=== PATIENT | male | born 2000 | race African-American/Black ===

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

== ENCOUNTER 2018-01-21 22:18 | Emergency (ER) | payer SELFPAY ==
[2018-01-21] MEDS ORDERED: KETOROLAC 60 MG/2 ML INJ. IM (23:30)
[2018-01-21] MEDS ORDERED: FAMOTIDINE 20 MG TABLET. PO (23:30)
[2018-01-21] MEDS ORDERED: ONDANSETRON ODT 4 MG TAB.RAPDIS. PO (23:30)
[2018-01-21] MEDS ORDERED: SUCRALFATE 1 GM TABLET. PO (23:30)
== END 2018-01-22 | disposition home or self-care (01) ==
LOC: ER 01-22
DX: R10.13 Epigastric pain (principal); R11.0 Nausea
CPT/HCPCS: 99281

== ENCOUNTER 2021-05-29 12:35 | Emergency (ER) | payer SELFPAY ==
[2018-01-21 23:55] VITALS: BP 133/66
[~2021-05-29 12:35] MED LIST changes: +AMOX500T PO; +DOCU-109 PO; +NAPR-699 PO; -NAPR250T2 PO; +POLY17PO29 PO
== END 2021-05-29 12:52 | disposition left against medical advice (07) ==
LOC: ER 12:35
DX: Z20.822 Contact with and (suspected) exposure to COVID-19 (principal); Z53.21 Procedure and treatment not carried out due to patient leaving prior to being seen by health care provider

== ENCOUNTER 2021-08-05 | Emergency (ER) | payer SELFPAY ==
[~2021-08-05] VITALS: Ht 180.3 cm; Wt 81.0 kg
--- NOTE | 2021-08-05 00:51 | PHYS DOC ---
Past Medical History Past Medical History: No Pertinent History Past Surgical History: Other Additional Past Surgical Histo: clavicle Smoking Status: Current Every Day Smoker Alcohol Use: None Drug Use: Marijuana General Adult EDM: Chief Complaint: DYSPNEA/RESPIRATORY DISTRESS HPI: HPI: Patient is a 20 year old male who presents with nasal congestion, generalized fatigue, subjective fevers since Sunday of this week. States that he has been around household member with similar symptoms. He is not vaccinated for Covid. No known Covid contacts. Denies shortness of breath. Does complain of chest tightness. No history of similar. Denies alcohol, drug use, smoking. No history of recent surgeries or immobilization, no hemoptysis, no cancer history, no lower extremity edema or discomfort. No estrogen-containing medications. Also complains of some upper abdominal discomfort. Described as a knot in his upper middle abdomen. Does not radiate. Has been present for more than a month. No associated nausea, vomiting. No diarrhea or constipation. No urinary symptoms. No history of abdominal surgeries. Review of Systems: Review of Systems: Constitutional: Reports subjective fever and chills Eyes: Denies change in visual acuity. [] HENT: Reports nasal congestion Respiratory: Reports chest tightness. Denies cough or shortness of breath. [] Cardiovascular: Denies chest pain or edema. [] GI: Denies abdominal pain, nausea, vomiting, bloody stools or diarrhea. [] : Denies dysuria. [] Musculoskeletal: Denies back pain or joint pain. [] Integument: Denies rash. [] Neurologic: Denies headache, focal weakness or sensory changes. [] Endocrine: Denies polyuria or polydipsia. [] Lymphatic: Denies swollen glands. [] Psychiatric: Denies depression or anxiety. [] Heart Score: C/O Chest Pain: N/A Risk Factors: Risk Factors: None Allergies: Allergies: Allergies Coded Allergies Type Severity Reaction Last Updated Verified No Known Drug Allergies 08/05/21 No Physical Exam: PE: Constitutional: Smells of marijuana, denies use. no acute distress, non-toxic appearance. [] HENT: Normocephalic, atraumatic.+ Nasal congestion Eyes: PERRLA, EOMI, conjunctiva normal, no discharge. [] Neck: Normal range of motion, no tenderness, supple, no stridor. [] Cardiovascular:Heart rate regular rhythm, no murmur [] Lungs & Thorax: Normal work of breathing. Bilateral breath sounds clear to auscultation [] Abdomen: Soft, nondistended, no tenderness with palpation. No masses Skin: Warm, dry, no erythema, no rash. [] Back: No tenderness, no CVA tenderness. [] Extremities: No tenderness, no cyanosis, no clubbing, ROM intact, no edema. [] Neurologic: Alert and oriented X 3, normal motor function, normal sensory function, no focal deficits noted. [] Psychologic: Affect normal, judgement normal, mood normal. [] Current Patient Data: Vital Signs: Vital Signs Date Time Temp Pulse Resp B/P (MAP) Pulse Ox O2 Delivery O2 Flow Rate FiO2 08/05/21 00:28 99.7 98 20 149/75 (99) 100 Room Air 99.7 EKG: EKG: Sinus rhythm. Rate 93. Normal axis. Normal intervals. QTc 413. No acute ischemic changes. [] Radiology/Procedures: Radiology/Procedures: [] Impression: [facility] [address] [place] [address] IMAGING REPORT Signed PATIENT: HORTENCIA GARCIA ACCOUNT: [id number] : 2000 LOCATION: ER AGE: 20 SEX: M EXAM STATUS: REG ER ORD. PHYSICIAN: KAYY CHRISTOPHER MD REASON: chest tightness PROCEDURE: CHEST AP ONLY XR CHEST 1V INDICATION: chest tightness COMPARISON STUDY: None. FINDINGS: Lungs: Normal lung volume. No pulmonary mass or consolidation. The tracheobronchial tree and hilar structures are normal. Pleura: No pleural effusion or pneumothorax. Heart and Mediastinum: The cardiomediastinal silhouette is normal. The great vessels of the thorax are normal. Bones and Soft Tissues: The bones and soft tissues are within normal limits. IMPRESSION: No acute cardiopulmonary process. Electronically signed by: Kristopher Aguila MD (08/05/2021 1:14 AM) [facility] DICTATED and SIGNED BY: KRISTOPHER AGUILA MD DATE: 08/05/21 [id number] Course & Med Decision Making: Course & Med Decision Making Pertinent Labs and Imaging studies reviewed. (See chart for details) Patient 20-year-old male without pertinent past medical history presents with nasal congestion, subjective fevers, and chest tightness for the past 4 days. Also complains of chronic "knot" in his stomach in his epigastric area. We will check for influenza and Covid. CXR to exclude pneumonia. EKG nonischemic, no risk factors for cardiac ischemia. Do not feel the troponin is indicated. Considered PE. Patient is PERC negative. No further work-up will be obtained in the ED. Lung sounds are clear. No evidence of asthma. For his complaint of chronic epigastric discomfort CMP and lipase were sent. He had no discernable tenderness, so imaging has been deferred. [id number] Labs and CXR reassuring. Covid and influenza rapid testing negative. Covid PCR pending. Will provide with contact information for local family medicine group to establish with PCP. Return precautions discussed. [id number] Manpreet Disclaimer: Manpreet Disclaimer: This electronic medical record was generated, in whole or in part, using a voice recognition dictation system. Departure Departure Impression: Primary Impression: Chest tightness Additional Impression: Nasal congestion Disposition: 01 HOME / SELF CARE / HOMELESS Condition: STABLE Referrals: NO PCP (PCP) Additional Instructions: Your chest x-ray labs, influenza, and Covid tests were reassuring. The most accurate Covid test (PCR) is still pending and will be available tomorrow. Since you do not have a PCP, please call the number for the [facility] at [phone]. KAYY CHRITSOPHER MD Aug 05, 2021 00:51
--- NOTE | 2021-08-05 01:16 | RAD ---
XR CHEST 1V INDICATION: chest tightness COMPARISON STUDY: None. FINDINGS: Lungs: Normal lung volume. No pulmonary mass or consolidation. The tracheobronchial tree and hilar st ructures are normal. Pleura: No pleural effusion or pneumothorax. Heart and Mediastinum: The cardiomediastinal silhouette is normal. The great vessels of the thorax ar e normal. Bones and Soft Tissues: The bones and soft tissues are within normal limits. IMPRESSION: No acute cardiopulmonary process. Electronically signed by: Charles Sylvester MD (08/05/2021 1:14 AM) [facility]
[2021-08-05 01:18] LABS: BASO % 1 % (0-3); EOS % 1 % (0-3); HEMATOCRIT 42.4 % (39.0-53.0); HEMOGLOBIN 13.8 g/dL (13.0-17.5); LYMPH # 0.7 x10^3/uL (1.0-4.8); LYMPH % 13 % (24-48); MEAN CORPUSCULAR HEMOGLOBIN 26 pg (25-35); MEAN CORPUSCULAR HGB CONC 33 g/dL (31-37); MEAN CORPUSCULAR VOLUME 79 fL (79-100); MONO # 0.5 x10^3/uL (0.0-1.1); MONO % 9 % (0-9); NEUT # 3.8 x10^3/uL (1.8-7.7); NEUT % 77 % (31-73); PLATELET COUNT 151 x10^3/uL (140-400); RED BLOOD COUNT 5.33 x10^6/uL (4.30-5.70); RED CELL DISTRIBUTION WIDTH 13.5 % (11.5-14.5)
[2021-08-05 01:48] LABS: INFLUENZA A PATIENT NEGATIVE (NEGATIVE); INFLUENZA B PATIENT NEGATIVE (NEGATIVE)
[2021-08-05 03:13] LABS: CALCIUM 8.6 mg/dL (8.5-10.1); CREATININE 1.2 mg/dL (0.7-1.3); GFR 91.6; POTASSIUM 3.5 mmol/L (3.5-5.1)
[2021-08-05 03:20] LABS: ALBUMIN 3.2 g/dL (3.4-5.0); TOTAL BILIRUBIN 0.5 mg/dL (0.2-1.0); TOTAL PROTEIN 6.4 g/dL (6.4-8.2)
[2021-08-05 03:30] VITALS: BP 132/63
--- NOTE | 2021-08-05 15:42 | NUR ---
IP: Attempted to contact pt concerning covid results. Phone number provided is not in service.
--- NOTE | 2021-08-07 08:07 | EKG ---
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
--- NOTE | 2021-08-15 14:38 | EKG ---
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
== END 2021-08-05 03:57 | disposition home or self-care (01) ==
LOC: ER
DX: R07.89 Other chest pain (principal); R09.81 Nasal congestion; R53.83 Other fatigue; F17.200 Nicotine dependence, unspecified, uncomplicated; Z20.822 Contact with and (suspected) exposure to COVID-19
CPT/HCPCS: 36415; 71045; 80053; 83690; 85025; 87426; 87804; 93005; 99285; U0003; U0005